=== PATIENT | male | born 1970 | race African-American/Black ===

== ENCOUNTER 2016-08-27 00:54 | Emergency (ER) | payer OTHER ==
[2016-08-27 01:23] LABS: HEMOGLOBIN 12.3 gm/dl (14.0-17.5); RED BLOOD COUNT 4.59 M/UL (4.20-5.50); WHITE BLOOD COUNT 12.1 K/UL (4.5-11.0)
[2016-08-27 01:43] LABS: BUN/CREATININE RATIO 40 (0-10)
== END 2016-08-27 10:21 | disposition home or self-care (01) ==
LOC: ER1 00:54
PROVIDERS: Emergency Medicine
DX: J18.9 Pneumonia, unspecified organism (principal); Z91.041 Radiographic dye allergy status
CPT/HCPCS: 36415; 71020; 80053; 83605; 85025; 96374; 99284; J0295; J7030; J7050

== ENCOUNTER 2016-12-26 20:33 | Emergency (ER) | payer OTHER ==
[2016-12-26 21:33] LABS: HEMOGLOBIN 12.4 gm/dl (14.0-17.5); RED BLOOD COUNT 4.84 M/UL (4.20-5.50)
[2016-12-26 21:46] LABS: BUN/CREATININE RATIO 23 (0-10)
== END 2016-12-27 00:15 | disposition home or self-care (01) ==
LOC: ER1 20:33
PROVIDERS: Family Medicine
DX: B34.9 Viral infection, unspecified (principal); G71.0 Muscular dystrophy; F17.200 Nicotine dependence, unspecified, uncomplicated; Z88.8 Allergy status to other drugs, medicaments and biological substances; Z91.013 Allergy to seafood
CPT/HCPCS: 36415; 80053; 81001; 82150; 83690; 85025; 96360; 96361; 99284

== ENCOUNTER 2020-04-23 17:12 | Emergency (ER) | payer OTHER ==
[~2020-04-23 17:12] MED LIST: CLEOCIN HCL300 MG PO; FLOMAX0.4 MG PO; TAMIFLU75 MG PO; TORADOL 10 MG T10 MG PO; ULTRAM50 MG PO; ZOFRAN4 MG PO
[2020-04-23 18:07] LABS: HEMOGLOBIN 13.1 gm/dl (14.0-17.5); RED BLOOD COUNT 5.02 M/UL (4.20-5.50); WHITE BLOOD COUNT 6.7 K/UL (4.5-11.0)
[2020-04-23 18:39] LABS: BUN/CREATININE RATIO 62 (0-10)
== END 2020-04-23 22:54 | disposition home or self-care (01) ==
LOC: ER1 17:12
PROVIDERS: Emergency Medicine
DX: G71.00 Muscular dystrophy, unspecified (principal); R53.1 Weakness; R53.83 Other fatigue; R53.81 Other malaise; F17.200 Nicotine dependence, unspecified, uncomplicated; Z91.013 Allergy to seafood; Z87.39 Personal history of other diseases of the musculoskeletal system and connective tissue; Z20.822 Contact with and (suspected) exposure to COVID-19
CPT/HCPCS: 70450; 71045; 80053; 81001; 82550; 82553; 83605; 83690; 83735; 83874; 83880; 84439; 84443; 84484; 85025; 93005; 96374; 99285; J2405; J7120; U0002